=== PATIENT | male | born 1955 | race Caucasian/White ===

== ENCOUNTER → 2018-12-29 | Day surgery (SDC) | payer OTHER ==
[~2018-12-29] MED LIST: ALLOPURINOL PO; AMLODIPINE BES2.5 MG PO; FENTANYL CITRATE/PF 100MCG/2 ML INJ ONE; LIDOCAINE HCL 1% 2 ML AMP ONE; MIDAZOLAM HCL 2 MG/2 ML VIAL ONE; OR PHACO EYE KIT ONE; PREOP PHACO EYE KIT ONE
--- OUTSIDE RECORDS SUMMARY | 2018-12-29 10:05 | XMS REPORT | Clinical Summary ---
Author Author Harshad [facility] Organization [facility] Address Unknown Phone Unavailable Care Team Providers Care Plaster Mold Maker Name Role Phone Asked, No Pcp PCP Unavailable Allergies Not on File Medications Not on file Active Problems Not on file Social History Date Tobacco Use Types Packs/Day Years Used Never Assessed Sex Assigned at Date Recorded Not on file Industry Job Start Date Occupation Not on file Not on file Not on file Travel End Travel History Travel Start No recent travel history available. Last Filed Vital Signs Not on file Plan of Treatment Health Maintenance Due Date Last Done Comments COLON CANCER SCREENING 2007 SHINGLES VACCINES (#1) 2007 INFLUENZA VACCINE 05/13/2018 Results Not on fileafter 12/28/2017 Advance Directives Patient has advance care planning documents on file. For more information, balbina camara contact: Harshad Chakraborty [id number] [place] [address]
[2018-12-29 12:01] VITALS: BP 141/85
== END | disposition home or self-care (01) ==
LOC: OR 10:03
PROVIDERS: ATTEND Ophthalmology
DX: H25.11 Age-related nuclear cataract, right eye (principal); M10.9 Gout, unspecified; I10 Essential (primary) hypertension; J44.9 Chronic obstructive pulmonary disease, unspecified; F17.210 Nicotine dependence, cigarettes, uncomplicated
CPT/HCPCS: 66984; J2001; J2250; V2632

== ENCOUNTER → 2019-01-12 | Day surgery (SDC) | payer OTHER ==
[~2019-01-12] MED LIST changes: +HYDRALAZINE HCL 20 MG/ML VIAL ONE; -LIDOCAINE HCL 1% 2 ML AMP ONE
--- OUTSIDE RECORDS SUMMARY | 2019-01-12 13:01 | XMS REPORT | Clinical Summary ---
Author Author Harshad [facility] Organization [facility] Address Unknown Phone Unavailable Care Team Providers Care Tack Welder Name Role Phone Asked, No Pcp PCP [...] INFLUENZA VACCINE 05/13/2018 Results Not on fileafter 01/11/2018 Advance Directives Patient has advance care planning documents on file. For more information, balbina camara contact: Harshad Chakraborty [phone] [place] [address]
[2019-01-12 16:00] VITALS: BP 153/78
== END | disposition home or self-care (01) ==
LOC: OR 12:59
PROVIDERS: ATTEND Ophthalmology
DX: H25.12 Age-related nuclear cataract, left eye (principal); I10 Essential (primary) hypertension; J44.9 Chronic obstructive pulmonary disease, unspecified; F41.9 Anxiety disorder, unspecified
CPT/HCPCS: 66984; J0360; J2250; V2632